=== PATIENT | female | born 1985 | race American Indian/Alaskan Native ===

== ENCOUNTER 2020-06-04 15:53 | Outpatient (CLI) | payer OTHER, MEDICAID ==
[2020-06-04 17:07] LABS: Hematocrit 28.9 % (30.3-42.9); Mean Corpuscular HGB Conc 35 % (30-34); Mean Corpuscular Volume 87 fl (79-97); Platelet Count 213 K/mm3 (140-440); Red Blood Count 3.32 M/mm3 (3.65-5.03)
[2020-06-04 17:17] LABS: Bilirubin,Urine NEG (Negative); Blood,Urine LG (Negative); Color,Urine Yellow (Yellow); Mucus,Urine 3+ /HPF
[2020-06-04 17:19] LABS: RBC,Urine > 182.0 /HPF (0.0-6.0)
[2020-06-04 17:27] LABS: Alanine Aminotransferase 10 units/L (7-56); Uric Acid 6.7 mg/dL (3.5-7.6)
[2020-06-04 17:37] VITALS: BP 123/67
[2020-06-04] MEDS ORDERED: LACTATED RINGERS 500 ML IV ONE (18:39)
== END 2020-06-04 17:48 | disposition home or self-care (01) ==
LOC: TRG 15:53 → EDBD 15:53 → APU 15:54 → TRG 17:48
PROVIDERS: ATTEND Obstetrics & Gynecology
DX: O13.3 Gestational [pregnancy-induced] hypertension without significant proteinuria, third trimester (principal); Z3A.35 35 weeks gestation of pregnancy
CPT/HCPCS: 36415; 59025; 81001; 82565; 83615; 84450; 84460; 84550; 85027; 87086